=== PATIENT | female | born 1960 | race African-American/Black ===

== ENCOUNTER 2017-03-16 17:28 | Outpatient (CLI) | payer OTHER ==
[2015-12-29 16:35] VITALS: BP 146/86
[2017-03-17 08:01] LABS: eGFR (African) > 60; eGFR (Non-African) > 60
== END 2017-03-16 17:30 ==
LOC: LAB 17:28
PROVIDERS: ATTEND Family Medicine
DX: E11.65 Type 2 diabetes mellitus with hyperglycemia (principal); I10 Essential (primary) hypertension
CPT/HCPCS: 80053; 80061; 82043; 83036

== ENCOUNTER 2017-08-05 16:44 | Outpatient (CLI) | payer OTHER ==
[2015-12-29 16:35] VITALS: BP 146/86
== END 2017-08-05 16:45 ==
LOC: LAB 16:44
PROVIDERS: ATTEND Family Medicine
DX: I10 Essential (primary) hypertension (principal)
CPT/HCPCS: 36415; 80048; 83036

== ENCOUNTER 2017-09-01 16:00 | Emergency (ER) | payer OTHER ==
[2017-09-01 16:54] LABS: MEAN CORPUSCULAR HEMOGLOBIN 30.5 pg (28.0-34.0); MEAN CORPUSCULAR VOLUME 91.8 fl (80.0-100.0)
[2017-09-01 16:55] LABS: BASOPHILS % 0.7 (0.0-1.5); EOSINOPHILS % 2.5 % (0.0-6.8); MONOCYTES % 4.4 % (0.0-11.0); NEUTROPHILS # 4.1 # k/uL (1.4-7.7)
[2017-09-01 17:01] LABS: eGFR (African) > 60; eGFR (Non-African) > 60
--- NOTE | 2017-09-01 17:08 | ED Physician Documentation ---
Upper Respiratory Symptoms - HISTORIAN Historian: patient - HPI Stated Complaint: cough Chief Complaint: Cough/ Upper Respiratory Onset: days ago (2 weeks) Associated Symptoms: runny nose, allergy, productive cough (slightly productive ; intermittently dry). denies: earache, sinus pain, sinus drainage, sore throat Further Comments: yes (56 year old female patient presents with complaint of cough for the past 2 weeks, states cough is slightly productive at times. Denies fever, denies headache. States chest is sore from coughing. Patient reports started lisinopril 2 weeks ago 08/06 for HTN. Reports seasonal allergy symptoms - runny nose, itchy eyes.) - ROS CONST/EYES: eye itching. denies: weakness, eye redness CVS/RESP: none. denies: chest pain, shortness of breath, palpitations LYMPH: denies: leg swelling, rash, swollen glands, ankle swelling GI/: none NEURO/PSYCH: denies: fainting, dizziness MS/SKIN: denies: joint pain, muscle aches - PAST HX Lung Disease: none Other History: diabetes Type 2, hypertension, other (seasonal allergies) Allergies/Adverse Reactions: Allergies Allergy/AdvReac Type Severity Reaction Status Date / Time codeine Allergy Verified 09/01/17 17:12 Home Medications: Ambulatory Orders Medication Instructions Recorded Glipizide [Glucotrol] 12.5 mg PO BID u2 10/23/15 Metformin HCl [Glucophage] 500 mg PO BID u2 10/23/15 Benzonatate [Tessalon Perles] 200 mg PO TID PRN #30 capsule 09/01/17 Estrogen,Con/M-Progest Acet 1 each PO QDAY 09/01/17 [Prempro 0.45-1.5 mg Tablet] Lisinopril [Zestril] 20 mg PO QDAY 09/01/17 Montelukast Sodium [Singulair] 10 mg PO HS 09/01/17 Venlafaxine HCl [Effexor] 150 mg PO QDAY 09/01/17 amLODIPine BESYLATE [Norvasc] 5 mg PO 0900 #30 tablet 09/01/17 - SOCIAL HX Smoking History: non-smoker - FAMILY HX Family History: denies: none - VITAL SIGNS Vital Signs: Vital Signs Temp Pulse Resp BP Pulse Ox 98.2 F 94 H 16 146/103 99 09/01/17 16:00 09/01/17 16:00 09/01/17 16:00 09/01/17 16:00 09/01/17 16:00 - REVIEWED ASSESSMENTS Nursing Assessment Reviewed: Yes Vitals Reviewed: Yes ED Results Lab/Radiology - Lab Results Lab Results: Lab Results 09/01/17 09/01/17 16:45 16:45 WBC 7.50 K/ul K/ul (4.00-12.00) RBC 4.43 M/ul M/ul (3.90-5.20) Hgb 13.5 g/dL g/dL (12.0-16.0) Hct 40.7 % % (34.5-46.5) MCV 91.8 fl fl (80.0-100.0) MCH 30.5 pg pg (28.0-34.0) MCHC 33.3 g/dL g/dL (30.0-36.0) RDW 12.6 % % (11.3-14.3) Plt Count 242 K/mm3 K/mm3 (130-400) Neut % (Auto) 54.9 % % (39.0-79.0) Lymph % (Auto) 35.4 % % (16.0-50.0) Assumption % (Auto) 4.4 % % (0.0-11.0) Eos % (Auto) 2.5 % % (0.0-6.8) Baso % (Auto) 0.7 (0.0-1.5) Neut # (Auto) 4.1 # k/uL # k/uL (1.4-7.7) Lymph # (Auto) 2.7 # k/uL # k/uL (0.6-4.0) Assumption # (Auto) 0.3 # k/uL # k/uL (0.0-0.9) Eos # (Auto) 0.2 # k/uL # k/uL (0.0-0.6) Baso # (Auto) 0.1 # k/uL # k/uL (0.0-0.5) Reactive Lymphs % 2.1 % % (0.0-5.0) Reactive Lymphs # 0.2 # k/uL # k/uL (0.0-0.8) Sodium 134 mmol/L L mmol/L (137-145) Potassium 4.2 mmol/L mmol/L (3.5-5.1) Chloride 98 mmol/L mmol/L (98-107) Carbon Dioxide 27 mmol/L mmol/L (22-30) BUN 10 mg/dL mg/dL (7-17) Creatinine 0.70 mg/dL mg/dL (0.52-1.04) Estimated Creat Clear 142 Est GFR ( Amer) > 60 (60 - ) Est GFR (Non-Af Amer) > 60 (60 - ) Glucose 117 mg/dL H mg/dL (74-106) Calcium 9.8 mg/dL mg/dL (8.4-10.2) Total Bilirubin 0.1 mg/dL L mg/dL (0.2-1.3) AST 44 U/L U/L (15-46) ALT 57 U/L U/L (13-69) Alkaline Phosphatase 68 U/L U/L (38-126) Total Protein 7.6 g/dL g/dL (6.3-8.2) Albumin 4.2 g/dL g/dL (3.5-5.0) - Orders Orders: ED Orders Category Date Time Status Place IV Lock 1T Care 09/01/17 16:07 Inactive CHEST 2 VIEW [CHEST P.A.&LAT 2 VIEWS] [RAD] Stat Exams 09/01/17 Ordered CBC/PLATELET/DIFF Stat Lab 09/01/17 16:45 Completed CMP Stat Lab 09/01/17 16:45 Completed Upper Respiratory Symptoms - EXAM General Appearance: no acute distress, alert EENT: eyes nml inspection, nml ENT inspection, lids & conjunct. nml, PERRL, ear nml, rhinorrhea, pharynx nml, airway nml Respiratory: no resp. distress, breath sounds nml, no pain on inspiration, speaks full sentences, no pleuritic chest pain CVS: reg rate & rhythm, heart sounds normal, equal pulses, no murmur, no gallop , PMI nml, no JVD, no friction rub, 24 Skin: color nml, no rash, warm,dry Extremities: non-tender, normal range of motion, no evidence of injury, no edema , J, [employer] Neuro/Psych: oriented x3, neuro intact, mood/affect nml, CN's nml as tested Discharge Clincal Impression: Cough due to KEIRA inhibitor Prescriptions: amLODIPine BESYLATE [Norvasc] 5 mg PO 0900 #30 tablet Benzonatate [Tessalon Perles] 200 mg PO TID PRN #30 capsule PRN Reason: Cough Additional Instructions: Stop lisinopril Start amlodipine in the morning. Your cough should subside in 4-7 days Follow up with your primary care doctor next week for a BP check. Condition: Stable Disposition: 01 HOME, SELF-CARE Decision to Admit: NO Decision Time: 17:08
[2017-09-01 17:20] VITALS: BP 166/106
--- NOTE | 2017-09-01 18:11 | Diagnostic Imaging Report ---
BARTOLO GARDUNO (ALEXANDER) - ER [facility] [id number] [id number] Report Submission Date: Sep 01, 2017 5:05:39 PM CDT Patient Study Name: LIUDMILA YOST Date: Sep 01, 2017 4:54:02 PM CDT Modality Type: CR Gender: F Description: CHEST : 62 Institution: [facility] Physician: BARTOLO GARDUNO (ALEXANDER) - ER Examination: PA and lateral chest. History: Evaluate lung bernardo. Comparison exam: None available for direct review Findings: PA lateral chest demonstrate a normal cardiac and mediastinal silhouette. Minimal tortuosity of the thoracic aorta. No focal infiltrate. No blunting of the costophrenic margins. Osseous structures are appropriate for age. Impression: No acute pulmonary process. Electronically signed on Sep 01, 2017 5:05:39 PM CDT by: Chintan ROCK
== END 2017-09-01 17:15 | disposition home or self-care (01) ==
LOC: ED 16:00
DX: R05 Cough (principal)
CPT/HCPCS: 71020; 80053; 85025; 99283

== ENCOUNTER 2017-11-22 10:27 | Outpatient (CLI) | payer OTHER | END 2017-11-22 10:30 | LOC: LAB 10:27 | PROVIDERS: ATTEND Family Medicine | DX: E11.65 Type 2 diabetes mellitus with hyperglycemia (principal) | CPT/HCPCS: 36415; 83036 ==

== ENCOUNTER 2018-04-20 15:17 | Outpatient (CLI) | payer OTHER ==
[2018-04-20 16:17] LABS: eGFR (African) > 60; eGFR (Non-African) > 60
== END 2018-04-20 15:18 ==
LOC: LAB 15:17
PROVIDERS: ATTEND Family Medicine
DX: E11.9 Type 2 diabetes mellitus without complications (principal)
CPT/HCPCS: 36415; 80053; 82043

== ENCOUNTER 2018-11-22 16:44 | Outpatient (CLI) | payer OTHER ==
[2018-11-22 17:34] LABS: eGFR (Non-African) > 60
== END 2018-11-22 16:46 ==
LOC: LAB 16:44
PROVIDERS: ATTEND Family Medicine
DX: E11.65 Type 2 diabetes mellitus with hyperglycemia (principal)
CPT/HCPCS: 36415; 80053; 80061; 82043; 83036